=== PATIENT | female | born 1960 | race Two or more races ===

== ENCOUNTER 2016-04-03 00:21 | Emergency (ER) | payer OTHER ==
[2016-04-03 00:53] VITALS: PULSE 78; TEMP 97.5; BMI 28.3
[2016-04-03] MEDS ORDERED: MAG HYDROX/AL HYDROX/SIMETH 30 ML UNIT-DOSE CUP PO ONE (01:08)
[2016-04-03] MEDS ORDERED: PROMETHAZINE HCL 50 MG/1 ML AMP IM ONE (01:08)
[2016-04-03] MEDS ORDERED: MAG HYDROX/AL HYDROX/SIMETH 30 ML UNIT-DOSE CUP ONE ×2 (01:42→03:13)
--- NOTE | 2016-04-03 02:03 | PDOC ---
History of Present Illness - General Chief Complaint: Pain Stated Complaint: ABDOMINAL PAIN Time Seen by Provider: 04/03/16 01:01 History Source: Patient Exam Limitations: No Limitations - History of Present Illness Travel History: No Initial Comments: 04/03/16 02:03 56yo Female patient presents to ED c/o nausea after taking a Percocet for her left foot pain. Patient states she vomited x 3. She states she did not eat and drinking gingerale made it worse. Denies abd pain, back pain, fever, rectal bleeding, dysuria, hematuria, rash, CP, Diff breathing, or any other complaints at this time. Timing/Duration: denies: constant, getting worse, changing over time, intermittent, resolved prior to arrival, gone now, other Quality: denies: mild, moderate, severe, aching, burning, cramping, dullness, fullness, sharpness, stabbing, throbbing, other Abdominal Pain Onset Location: denies: RUQ, LUQ, RLQ, LLQ, epigastric, periumbilical, suprapubic, generalized abdomen, flank, unknown, other Activities at Onset: denies: none, exertion, emotional upset, rest, sleep, no specific activity, eating, working, sexual intercourse, other Treatment Prior to Arrive: worse with: analgesics, antacids, cold pack, heat, laxative, enema, other Aggravating Factors: worse with: None, Defecation, Eating, Emotional upset, Exertion, [place], Movement, Voiding, Change in position Alleviating Factors: worse with: None, Belching, Shallow Breathing, Defecation, Eating, Holding Breath, Passing Gas, Change in Position, Rest, Voiding, Vomiting Past History - Travel Traveled outside of the country in the last 30 days: No Close contact w/someone who was outside of country & ill: No - Past Medical History Allergies/Adverse Reactions: Allergies Allergy/AdvReac Type Severity Reaction Status Date / Time No Known Drug Allergies Allergy Verified 04/03/16 00:45 Home Medications: Ambulatory Orders Didanosine 250 mg PO DAILY 05/04/15 Lopinavir/Ritonavir [Kaletra 200-50 mg Tablet] 1 each PO BID 05/04/15 Losartan/Hydrochlorothiazide [Hyzaar 50-12.5 Tablet] 1 each PO DAILY 05/04/15 Multivitamin [Poly-Vitamin] 1 each PO DAILY 05/04/15 Tenofovir Disoproxil Fumarate [Viread] 300 mg PO DAILY 05/04/15 Methadone HCl 60 mg PO DAILY 02/17/16 Nabumetone [Relafen -] 750 mg PO BID 02/17/16 Oxycodone HCl/Acetaminophen [Percocet 10-325 mg Tablet] 1 each PO BID PRN #28 tablet MDD 2 03/23/16 Anemia: No Asthma: No Cancer: No Cardiac Disorders: No CVA: No COPD: No CHF: No Dementia: No Diabetes: No GI Disorders: No Disorders: No HTN: Yes Hypercholesterolemia: No HIV: Yes Kidney Stones: No Liver Disease: No Suicide Attempt (Hx): No Seizures: No Thyroid Disease: No - Surgical History Abdominal Surgery: No Appendectomy: No Cardiac Surgery: No Cholecystectomy: No Lung Surgery: Yes (LEFT LUNG BIOPSY IN 1995) Neurologic Surgery: No Orthopedic Surgery: No - Reproductive History PID: No - Immunization History Immunization Up to Date: Yes - Psycho/Social/Smoking Cessation Hx Anxiety: No Suicidal Ideation: No Smoking Status: No Smoking History: Former smoker Have you smoked in the past 12 months: No Number of Cigarettes Smoked Daily: 0 If you are a former smoker, when did you quit?: 1995 Cigars Per Day: 0 Information on smoking cessation initiated: No 'Breaking Loose' booklet given: 06/18/14 Hx Alcohol Use: No Drug/Substance Use Hx: No Substance Use Type: Alcohol, Heroin Hx Substance Use Treatment: Yes (detox, rehab, mmtp) Abd/GI Specific PMHX - Complaint Specific PMHX Colitis: No Diverticulitis: No Gall Bladder Disease: No GERD: No Hepatitis: Yes (hepatitis c) Irritable Bowel Synd (IBS): No Pancreatitis: No GI Ulcer Disease: No Review of Systems - Review of Systems Able to Perform ROS?: Yes Is the patient limited [place] proficient: No Constitutional: No: Chills, Fever Respiratory: No: Cough, Shortness of Breath, Stridor, Wheezing Cardiac (ROS): No: Chest Pain, Edema, Palpitations ABD/GI: Yes: Nausea, Vomiting. No: Constipated, Diarrhea, Difficulty Swallowing , Poor Appetite, Poor Fluid Intake, Rectal Bleeding, Tarry Stools : No: Burning, Dysuria, Discharge, Frequency, Flank Pain, Hematuria, Pain Musculoskeletal: No: Back Pain Integumentary: No: Bruising, Erythema, Rash Neurological: No: Headache, Numbness, Seizure, Tremors, Weakness, Unsteady Gait , Ataxia All Other Systems: Reviewed and Negative *Physical Exam - Vital Signs Last Vital Signs Temp Pulse Resp BP Pulse Ox 97.5 F L 78 14 153/90 95 04/03/16 00:45 04/03/16 00:45 04/03/16 00:45 04/03/16 00:45 04/03/16 00:45 - Physical Exam General Appearance: Yes: Nourished, Appropriately Dressed, Mild Distress. No: Apparent Distress, Moderate Distress, Severe Distress Respiratory/Chest: positive: Lungs Clear, Normal Breath Sounds. negative: Accessory Muscle Use, Labored Respiration, Rapid RR, Decreased Breath Sounds, Paradoxal Breathing, Rhonchi, Stridor, Wheezing Cardiovascular: positive: Regular Rhythm, Regular Rate. negative: Edema, JVD, Murmur Gastrointestinal/Abdominal: positive: Soft, Increased Bowel Sounds. negative: Tender, Distended, Guarding, Rebound, Tenderness Musculoskeletal: positive: Normal Inspection. negative: CVA Tenderness Extremity: positive: Normal Capillary Refill, Normal Inspection, Normal Range of Motion. negative: Pedal Edema, Swelling Integumentary: positive: Normal Color, Dry, Warm Neurologic: positive: physician gynecologist II-XII NML intact, Fully Oriented, Alert, Normal Mood/ Affect, Normal Response, Motor Strength 07/07 ED Treatment Course - LABORATORY CBC & Chemistry Diagram: 04/03/16 05:23 04/03/16 04:15 - Medications Given in the ED: ED Medications Discontinued Medications Generic Name Dose Route Start Last Admin Trade Name Freq PRN Reason Stop Dose Admin Al Hydroxide/Mg Hydroxide 30 ml 04/03/16 01:08 04/03/16 01:43 Mylanta Oral Suspension - PO 04/03/16 01:09 30 ml ONCE ONE Administration Progress Note - Progress Note Progress Note: PATIENT REPORTS IMPROVEMENT IN SYMPTOMS. PLAN IS TO FOLLOW UP WITH PMD. RETURN IF WORSENING OF SYMPTOMS. *DC/Admit/Observation/Transfer Diagnosis at time of Disposition: Gastroesophageal reflux disease Qualifiers: Esophagitis presence: without esophagitis Qualified Code(s): K21.9 - Gastro- esophageal reflux disease without esophagitis Nausea and vomiting Qualifiers: Vomiting type: unspecified Vomiting Intractability: non-intractable Qualified Code(s): R11.2 - Nausea with vomiting, unspecified - Discharge Dispostion Disposition: HOME Condition at time of disposition: Improved Admit: No - Patient Instructions Printed Discharge Instructions: DI for Gastroesophageal Reflux Disease (GERD) Additional Instructions: FOLLOW UP WITH YOUR DOCTOR DISCUSSED. CALL TO SCHEDULE YOUR APPOINTMENT. RETURN IF SYMPTOMS WORSEN, OR ANY CONCERNS FOR FURTHER EVALUATION. Print Language: SWAZI
[2016-04-03] MEDS ORDERED: METOCLOPRAMIDE HCL INJECTION 10 MG/2 ML VIAL IVPUSH ONE (03:27)
[2016-04-03] MEDS ORDERED: SODIUM CHLORIDE 1,000 ML IV STA (03:27)
[2016-04-03] MEDS ORDERED: METOCLOPRAMIDE HCL INJECTION 10 MG/2 ML VIAL ONE (03:46)
[2016-04-03 04:45] LABS: ALBUMIN 4.2 g/dl (3.4-5.0); ALK PHOS 148 U/L (45-117); AMYLASE 94 U/L (25-115); ANION GAP 10 (8-16); BILIRUBIN,TOTAL 0.4 mg/dL (0.2-1.0); CO2 29 mmol/L (21-32); CREATININE 0.8 mg/dL (0.55-1.02); GLUCOSE,RANDOM 114 mg/dL (74-106); SGOT/AST 72 U/L (15-37); SGPT/ALT 50 U/L (12-78); TOT PROT 8.7 g/dl (6.4-8.2)
[2016-04-03 04:48] VITALS: BP 145/73
[2016-04-03] MEDS ORDERED: POTASSIUM CHLORIDE TABS 20 MEQ TABLET.ER (FP) PO ONE (04:59)
[2016-04-03] MEDS ORDERED: FAMOTIDINE 20 MG/50 ML IVPB 50 ML IVPB ONE ×2 (05:10→05:16)
[2016-04-03] MEDS ORDERED: PANTOPRAZOLE SODIUM 40 MG in SODIUM CHLORIDE 100 ML IVPB ONE (05:10)
[2016-04-03] MEDS ORDERED: PANTOPRAZOLE SODIUM 40 MG VIAL ONE (05:18)
[2016-04-03] MEDS ORDERED: POTASSIUM CHLORIDE 40 MEQ/30 ML UNIT DOSE CUP ONE (05:26)
[2016-04-03 05:31] LABS: BASOPHIL 0.2 % (0-2.0); EOSINOPHIL 0.2 % (0-4.5); MCH 28.7 pg (25.7-33.7); MCHC 33.6 g/dl (32.0-36.0); MEAN CELL VOLUME 85.3 fl (80-96); MEAN PLT VOLUME 8.8 fl (7.5-11.1); NEUTROPHILS 87.1 % (42.8-82.8); PLATELET COUNT 177 K/MM3 (134-434); RDW 13.9 % (11.6-15.6); WHITE BLOOD COUNT 9.7 K/mm3 (4.0-10.0)
== END 2016-04-03 07:24 | disposition home or self-care (01) ==
LOC: JER 00:21
PROC: 3E023GC Introduction of Other Therapeutic Substance into Muscle, Percutaneous Approach (ICD-10-PCS; principal; 2016-04-03)
PROC: 3E033GC Introduction of Other Therapeutic Substance into Peripheral Vein, Percutaneous Approach (ICD-10-PCS; 2016-04-03)
PROC: 3E033GC Introduction of Other Therapeutic Substance into Peripheral Vein, Percutaneous Approach (ICD-10-PCS; 2016-04-03)
DX: K21.9 Gastro-esophageal reflux disease without esophagitis (principal); I10 Essential (primary) hypertension; Z21 Asymptomatic human immunodeficiency virus [HIV] infection status
CPT/HCPCS: 36415; 80053; 82150; 83690; 85025; 96365; 96372; 96375; 99281-25

== ENCOUNTER 2016-07-24 12:50 | Inpatient (IN) | payer OTHER ==
[2016-07-24 15:44] VITALS: BMI 30.4
--- NOTE | 2016-07-24 17:17 | HP ---
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 seeking help to stop using klonopin and xanax,mmtp 60 mgs/day,last medicated today, several admissions in the past last 01/18 multiple medical problems htn,mmtp,hepatitis c,s/p left lung biopsy longest period of sobriety 8 years Exam Limitations: No Limitations - Ebola screening Have you traveled outside of the country in the last 21 days: No Have you had contact with anyone from an Ebola affected area: No Have you been sick,other than usual withdrawal symptoms: No Do you have a fever: No - Review of Systems Constitutional: Loss of Appetite, Malaise, Night Sweats, Changes in sleep, Weakness, Unintentional Wgt. Loss EENT: reports: Tearing, Nose Congestion Respiratory: reports: No Symptoms reported Cardiac: reports: Palpitations GI: reports: Diarrhea, Nausea, Poor Appetite, Vomiting, Abdominal cramping : reports: No Symptoms Reported Musculoskeletal: reports: Back Pain, Muscle Pain Integumentary: reports: Dryness Neuro: reports: Headache, Tremors Endocrine: reports: No Symptoms Reported Hematology: reports: No Symptoms Reported, Other (hiv) Psychiatric: reports: No Sypmtoms Reported, Judgement Intact, Mood/Affect Appropiate, Orientated x3, Depressed (ptsd) Patient History - Patient Medical History Hx Anemia: No Hx Asthma: No Hx Chronic Obstructive Pulmonary Disease (COPD): No Hx Cancer: No Hx Cardiac Disorders: No Hx Congestive Heart Failure: No Hx Hypertension: Yes (on med) Hx Hypercholesterolemia: No Hx Pacemaker: No HX Cerebrovascular Accident: No Hx Seizures: No Hx Dementia: No Hx Diabetes: No Hx Gastrointestinal Disorders: No Hx Liver Disease: No Hx Genitourinary Disorders: No Hx Sexually Transmitted Disorders: No Hx Renal Disease (ESRD): No Hx Thyroid Disease: No Hx Human Immunodeficiency Virus (HIV): Yes (since 1995) Hx Hepatitis C: Yes Hx Depression: Yes (ptsd) Hx Suicide Attempt: No Hx Bipolar Disorder: No Hx Schizophrenia: No Other Medical History: no suicidal,no homicidal - Patient Surgical History Past Surgical History: Yes Hx Neurologic Surgery: No Hx Cataract Extraction: No Hx Cardiac Surgery: No Hx Lung Surgery: Yes (LEFT LUNG BIOPSY IN 1995) Hx Breast Surgery: No Hx Breast Biopsy: No Hx Abdominal Surgery: No Hx Appendectomy: No Hx Cholecystectomy: No Hx Genitourinary Surgery: No Hx Section: No Hx Orthopedic Surgery: No Other Surgical History: 09/15 Anesthesia Reaction: No - PPD History Previous Implant?: Yes Documented Results: Negative w/o proof Date: 09/24/13 Results: 0 mm PPD to be Administered?: Yes - Reproductive History Patient is a Female of Child Bearing Age (11 -55 yrs old): Yes Last Menstrual Period: 05/25/09 Patient : No - Smoking Cessation Smoking history: Former smoker Have you smoked in the past 12 months: No Aproximately how many cigarettes per day: 0 If you are a former smoker, when did you quit?: 1995 Cigars Per Day: 0 Hx Chewing Tobacco Use: No Initiated information on smoking cessation: Yes 'Breaking Loose' booklet given: 07/25/16 - Substance & Tx. History Hx Alcohol Use: No Hx Substance Use: Yes Substance Use Type: Tranquilizers Hx Substance Use Treatment: Yes (01/18 [facility]) - Substances Abused Alprazolam (Xanax) Route: Oral Frequency: Daily Amount used: 8MG Age of first use: 51 Date of Last Use: 07/23/16 Benzodiazepine (Klonopin) Route: Oral Frequency: Daily Amount used: 5-6MG Age of first use: 51 Date of Last Use: 07/23/16 Family Disease History - Family Disease History Family Disease History: Other: Grandparent (GM-HTN), Daughter (dsa, drug addiction) Admission Physical Exam BHS - Vital Signs Vital Signs: Vital Signs - 24 hr 07/24/16 15:42 Temperature 98.7 F Pulse Rate 91 H Respiratory 20 Rate Blood Pressure 154/100 - Physical General Appearance: Yes: Moderate Distress, Tremorous, Irritable, Sweating, Anxious HEENTM: Yes: Normal ENT Inspection, MARIANO, Pharynx Normal Respiratory: Yes: Lungs Clear, Normal Breath Sounds, No Respiratory Distress Neck: Yes: Within Normal Limits, Supple, Trachea in good position Breast: Yes: Breast Exam Deferred Cardiology: Yes: Within Normal Limits, Regular Rhythm, Regular Rate, S1, S2 Abdominal: Yes: Within Normal Limits, Normal Bowel Sounds, Non Tender, Flat, Soft Genitourinary: Yes: Within Normal Limits Back: Yes: Within Normal Limits, Normal Inspection, Muscle Spasm Musculoskeletal: Yes: Back pain, Muscle Pain Extremities: Yes: Normal Range of Motion, Non-Tender, Tremors Neurological: Yes: extracorporeal circulation specialist II-XII NML intact, Alert, Motor Strength 5/5, Normal Response Integumentary: Yes: Dry Lymphatic: Yes: Within Normal Limits - Diagnostic (1) Uncomplicated sedative, hypnotic or anxiolytic withdrawal Current Visit: Yes Status: Acute (2) HTN (hypertension) Current Visit: No Status: Chronic Comment: on meds, sees primary (3) Methadone maintenance therapy patient Current Visit: No Status: Chronic Comment: [facility], gets one day take home (4) Hepatitis C Current Visit: Yes Status: Acute (5) PTSD (post-traumatic stress disorder) Current Visit: Yes Status: Acute (6) History of lung biopsy Current Visit: Yes Status: Acute (7) Weight loss Current Visit: Yes Status: Acute Cleared for Admission [facility] - Detox or Rehab [facility] Level of Care: Medically Managed Detox Regimen/Protocol: Valium [facility] Breath Alcohol Content Breath Alcohol Content: 0 Urine Pregancy Test - Result Urine Test Results: Negative- NO Line Present Urine Drug Screen - Results Drug Screen Negative: No Urine Drug Screen Results: BZO-Benzodiazepines, MTD-Methadone, OXY-Oxycodone
[2016-07-24] MEDS ORDERED: MENTHOL/PHENOL 1 EACH UD MM PRN (17:31)
[2016-07-24] MEDS ORDERED: ACETAMINOPHEN 325 MG TABLET (FP) PO PRN (17:31)
[2016-07-24] MEDS ORDERED: guaiFENesin/D-METHORPHAN HB 10 ML UNIT-DOSE CUPS PO PRN (17:31)
[2016-07-24] MEDS ORDERED: hydrOXYzine PAMOATE 50 MG CAPSULE (FP) PO PRN (17:31)
[2016-07-24] MEDS ORDERED: MAGNESIUM HYDROX 2400MG/30ML ORAL SUSPENSION 30 ML CUP PO PRN (17:31)
[2016-07-24] MEDS ORDERED: diphenhydrAMINE HCL 50 MG CAPSULE PO PRN (17:31)
[2016-07-24] MEDS ORDERED: diazePAM 5 MG TABLET PO PRN (17:31)
[2016-07-24] MEDS ORDERED: MAGNESIUM CITRATE 300 ML BOTTLE PO PRN (17:31)
[2016-07-24] MEDS ORDERED: MAG HYDROX/AL HYDROX/SIMETH 30 ML UNIT-DOSE CUP PO PRN (17:31)
[2016-07-24] MEDS ORDERED: P-EPHED 60MG/TRIPROLIDI 2.5MG TABLET PO PRN (17:31)
[2016-07-24] MEDS ORDERED: IBUPROFEN 400 MG TABLET (FP) PO PRN (17:31)
[2016-07-24] MEDS ORDERED: LOPERAMIDE HCL 2 MG CAPSULE PO PRN (17:31)
[2016-07-24] MEDS ORDERED: diazePAM 5 MG TABLET PO ONE (19:00)
[2016-07-24 21:14] LABS: URINE APPEARANCE CLEAR; URINE BILIRUBIN NEGATIVE (NEGATIVE); URINE BLOOD NEGATIVE (NEGATIVE); URINE COLOR YELLOW; URINE GLUCOSE (UA) NEGATIVE (NEGATIVE); URINE KETONE NEGATIVE (NEGATIVE); URINE LEUK ESTERASE NEGATIVE (NEGATIVE); URINE NITRITE NEGATIVE (NEGATIVE); URINE PROTEIN NEGATIVE (NEGATIVE); URINE UROBILINOGEN 2.0 E.U/dl E.U./dl (0.2-1.0)
[2016-07-24] MEDS: diazePAM 5 MG TABLET PO SCH (22:26)
[2016-07-24] MEDS: RITONAVIR/LOPINAVIR 50MG/200MG 1 COMBO TABLET PO SCH (22:26)
[2016-07-24] MEDS: THIAMINE HCL 100 MG TABLET (FP) PO SCH (22:26)
[2016-07-25] MEDS: diazePAM 5 MG TABLET PO SCH ×3 (05:32→22:32)
[2016-07-25] MEDS ORDERED: METHADONE HCL 40 MG DISPERSABLE TABLET PO SCH (07:15)
[2016-07-25] MEDS ORDERED: METHADONE HCL 10 MG TABLET ONE (07:20)
[2016-07-25] MEDS ORDERED: METHADONE HCL 40 MG DISPERSABLE TABLET ONE (07:20)
[2016-07-25] MEDS: METHADONE 40 MG, METHADONE 20 MG PO SCH (07:32)
[2016-07-25] MEDS ORDERED: HYDROCHLOROTHIAZIDE 12.5 MG CAPSULE (FP) PO SCH (10:00)
[2016-07-25 10:13] LABS: MCH 28.5 pg (25.7-33.7); MCHC 32.8 g/dl (32.0-36.0); MEAN CELL VOLUME 87.1 fl (80-96); MEAN PLT VOLUME 10.1 fl (7.5-11.1); RDW 13.9 % (11.6-15.6); WHITE BLOOD COUNT 13.8 K/mm3 (4.0-10.0)
[2016-07-25 10:43] LABS: GLUCOSE,RANDOM 95 mg/dL (74-106); SGOT/AST 48 U/L (15-37); SGPT/ALT 31 U/L (12-78)
[2016-07-25] MEDS: LOSARTAN 50MG/HCTZ 12.5MG 1 TAB (FP) PO SCH (10:44)
[2016-07-25] MEDS: PRENATAL VITAMINS W/ FOLIC ACID TABLET (FP) PO SCH (10:44)
[2016-07-25] MEDS: TENOFOVIR DISOPROXIL FUMARATE 300 MG TABLET PO SCH (10:44)
[2016-07-25] MEDS: RITONAVIR/LOPINAVIR 50MG/200MG 1 COMBO TABLET PO SCH ×2 (10:44→22:32)
--- NOTE | 2016-07-25 10:44 | PN ---
S CIWA - CIWA Score Nausea/Vomitin Muscle Tremors: 2 Anxiety: 2 Agitation: 2 Paroxysmal Sweats: 3 Orientation: 0-Oriented Tacttile Disturbances: 1-Very Mild Itch/Numbness Auditory Disturbances: 0-None Visual Disturbances: 0-None Headache: 0-None Present CIWA-Ar Total Score: 12 S Progress Note (SOAP) Subjective: interrupted sleep,but feeling better , sweats but less shakes Objective: 07/25/16 10:40 Vital Signs Temperature 98.4 F 07/25/16 06:36 Pulse Rate 75 07/25/16 06:36 Respiratory Rate 18 07/25/16 06:36 Blood Pressure 141/82 07/25/16 06:36 O2 Sat by Pulse Oximetry (%) Laboratory Tests 07/24/16 07/25/16 20:52 06:00 WBC 13.8 H D RBC 5.10 Hgb 14.5 Hct 44.4 MCV 87.1 MCHC 32.8 RDW 13.9 MPV 10.1 D Urine Color Yellow Urine Appearance Clear Urine pH 8.0 D Ur Specific [place] 1.015 Urine Protein Negative Urine Glucose (UA) Negative Urine Ketones Negative Urine Blood Negative Urine Nitrite Negative Urine Bilirubin Negative Urine Urobilinogen 2.0 e.u/dl H Ur Leukocyte Esterase Negative pending labs pt aox3 in nad ambulating Assessment: 07/25/16 10:42 withdrawal sx's elevated wbc 07/25/16 10:43 Plan: cont. detox . increase fluids repeat cbc
[2016-07-25 10:55] LABS: ANION GAP 8 (8-16); CALCIUM 8.7 mg/dL (8.5-10.1); CO2 30 mmol/L (21-32); COCKROFT - GAULT 104.1165; CREATININE 0.8 mg/dL (0.55-1.02)
[2016-07-25 10:56] LABS: ALBUMIN 3.7 g/dl (3.4-5.0); ALK PHOS 138 U/L (45-117); BILIRUBIN,TOTAL 0.7 mg/dL (0.2-1.0); TOT PROT 7.6 g/dl (6.4-8.2)
--- NOTE | 2016-07-25 11:45 | EKG ---
Test Reason : Blood Pressure : / mmHG Vent. Rate : 081 BPM Atrial Rate : 081 BPM P-R Int : 184 ms QRS Dur : 084 ms QT Int : 386 ms P-R-T Axes : 076 059 054 degrees QTc Int : 448 ms NORMAL SINUS RHYTHM POSSIBLE LEFT ATRIAL ENLARGEMENT BORDERLINE ECG WHEN COMPARED WITH ECG OF 20-MAR-2015 23:49, NO SIGNIFICANT CHANGE WAS FOUND Confirmed by MARTHA MART MD ([id number]) on 07/25/2016 11:45:05 AM Referred By: Confirmed By:MARTHA MART MD
--- NOTE | 2016-07-25 12:55 | CONSULT ---
[facility] Psychiatric Consult - Data Date of interview: 07/25/16 Admission source: [facility] Identifying data: Readmission to [facility] for this 56 y/o AA female seeking detox treatment for benzodiazepine dependence.Patient is ,a mother of five,domiciled,unemployed and supported on [employer] benefits. Substance Abuse History: - Smoking Cessation. Smoking history: Former smoker. Have you smoked in the past 12 months: No. Aproximately how many cigarettes per day: 0. If you are a former smoker, when did you quit?: 1995. Cigars Per Day: 0. Hx Chewing Tobacco Use: No. Initiated information on smoking cessation : Yes. 'Breaking Loose' booklet given: 07/25/16. - Substance & Tx. History. Hx Alcohol Use: No. Hx Substance Use: Yes. Substance Use Type: Tranquilizers. Hx Substance Use Treatment: Yes (01/18 [facility]). - Substances Abused. Alprazolam (Xanax). Route: Oral. Frequency: Daily. Amount used: 8MG. Age of first use: 51. Date of Last Use: 07/23/16. Benzodiazepine (Klonopin). Route: Oral. Frequency: Daily. Amount used: 5-6MG. Age of first use: 51. Date of Last Use: 07/23/16. Confirmed by patient. Medical History: Hypertension,hepatitis C and HIV infection since 1995. Psychiatric History: Patient denies history of psychiatric hospitalizations.Ms Person is currently on methadone maintenance (60 mg/day) at the [facility] program in [place], [place].She denies history of suicide attempts.Records indicate past diagnosis of PTSD.Patient is not able to shed light on the circumstances which support that diagnosis. Physical/Sexual Abuse/Trauma History: Patient denies. Additional Comment: Urine Drug Screen Results: BZO-Benzodiazepines, MTD- Methadone, OXY-Oxycodone.Noted. Mental Status Exam - Mental Status Exam Alert and Oriented to: Time, Place, Person Cognitive Function: Grossly Intact Patient Appearance: Well Groomed (overweight) Mood: Nervous, Withdrawn Affect: Mood Congruent Patient Behavior: Fatigued, Cooperative Speech Pattern: Clear Voice Loudness: Normal Thought Process: Goal Oriented Thought Disorder: Not Present Hallucinations: Denies Suicidal Ideation: Denies Homicidal Ideation: Denies Insight/Judgement: Poor Sleep: Poorly, Difficulty falling asleep Appetite: Good Muscle strength/Tone: Normal Gait/Station: Normal Psychiatric Findings - Problem List ([place] 1, 2,3) (1) Uncomplicated sedative, hypnotic or anxiolytic withdrawal Current Visit: Yes Status: Acute (2) Opioid dependence on agonist therapy Current Visit: Yes Status: Acute (3) Substance induced mood disorder Current Visit: Yes Status: Acute (4) Hepatitis C Current Visit: Yes Status: Chronic (5) History of lung biopsy Current Visit: Yes Status: Chronic (6) GERD (gastroesophageal reflux disease) Current Visit: Yes Status: Chronic Qualifiers: Esophagitis presence: without esophagitis Qualified Code(s): K21.9 - Gastro-esophageal reflux disease without esophagitis (7) HTN (hypertension) Current Visit: Yes Status: Chronic Comment: on meds, sees primary (8) Hepatitis C carrier Current Visit: Yes Status: Chronic Comment: referred to [facility] Hep C program - she is interested (9) Human immunodeficiency virus (HIV) seropositivity Current Visit: Yes Status: Chronic Comment: on meds, sees primary, stable (10) Insomnia Current Visit: Yes Status: Acute - Initial Treatment Plan Initial Treatment Plan: Psychoeducation.Detoxification.Ambien 5 mg po hs.Side effects/benefits discussed with the patient.She agrees with this careplan.Observation.Recent pharmacy claims reviewed.Noted scripts for gabapentin and celexa on 03/28/16 @ [facility].Patient is presented with this information.Advised to resume these drugs.Patient declines.
[2016-07-25 13:57] LABS: PLATELET ESTIMATE ADEQUATE (NORMAL)
[2016-07-25] MEDS: THIAMINE HCL 100 MG TABLET (FP) PO SCH (22:31)
[2016-07-25] MEDS: ZOLPIDEM TARTRATE 5 MG TABLET PO PRN (22:32)
[2016-07-26] MEDS ORDERED: METHADONE HCL 10 MG TABLET ONE (04:05)
[2016-07-26] MEDS ORDERED: METHADONE HCL 40 MG DISPERSABLE TABLET ONE (04:05)
[2016-07-26] MEDS: METHADONE 40 MG, METHADONE 20 MG PO SCH (06:17)
[2016-07-26 10:04] LABS: BASOPHIL 0.4 % (0-2.0); MCH 29.1 pg (25.7-33.7); MCHC 33.5 g/dl (32.0-36.0); MEAN CELL VOLUME 86.9 fl (80-96); NEUTROPHILS 58.9 % (42.8-82.8); PLATELET COUNT 121 K/MM3 (134-434)
[2016-07-26] MEDS: diazePAM 5 MG TABLET PO SCH ×2 (10:47→22:27)
[2016-07-26] MEDS: PRENATAL VITAMINS W/ FOLIC ACID TABLET (FP) PO SCH (10:47)
[2016-07-26] MEDS: TENOFOVIR DISOPROXIL FUMARATE 300 MG TABLET PO SCH (10:47)
[2016-07-26] MEDS: LOSARTAN 50MG/HCTZ 12.5MG 1 TAB (FP) PO SCH (10:47)
[2016-07-26] MEDS: RITONAVIR/LOPINAVIR 50MG/200MG 1 COMBO TABLET PO SCH ×3 (10:47→22:26)
--- NOTE | 2016-07-26 11:49 | PN ---
S CIWA - CIWA Score Nausea/Vomitin-No Nausea/No Vomiting Muscle Tremors: 4-Moderate,w/Arms Extend Anxiety: 3 Agitation: 3 Paroxysmal Sweats: 2 Orientation: 0-Oriented Tacttile Disturbances: 0-None Auditory Disturbances: 0-None Visual Disturbances: 0-None Headache: 0-None Present CIWA-Ar Total Score: 12 S Progress Note (SOAP) Subjective: tired sweats interrupted sleep anxious Objective: 07/26/16 11:48 Vital Signs Temperature 97.7 F 07/26/16 10:55 Pulse Rate 73 07/26/16 10:55 Respiratory Rate 16 07/26/16 10:55 Blood Pressure 136/82 07/26/16 10:55 O2 Sat by Pulse Oximetry (%) Laboratory Tests 07/24/16 07/25/16 07/25/16 20:52 06:00 06:00 WBC 13.8 H D RBC 5.10 Hgb 14.5 Hct 44.4 MCV 87.1 MCHC 32.8 RDW 13.9 Plt Count No Result Required. MPV 10.1 D Neutrophils % Lymphocytes % Monocytes % Eosinophils % Basophils % Platelet Estimate Adequate Platelet Comment Mod plt clumping Sodium 139 Potassium 3.9 Chloride 101 Carbon Dioxide 30 Anion Gap 8 BUN 10 Creatinine 0.8 Creat Clearance w eGFR > 60 Random Glucose 95 Calcium 8.7 Total Bilirubin 0.7 D AST 48 H D ALT 31 D Alkaline Phosphatase 138 H Total Protein 7.6 Albumin 3.7 Urine Color Yellow Urine Appearance Clear Urine pH 8.0 D Ur Specific [place] 1.015 Urine Protein Negative Urine Glucose (UA) Negative Urine Ketones Negative Urine Blood Negative Urine Nitrite Negative Urine Bilirubin Negative Urine Urobilinogen 2.0 e.u/dl H Ur Leukocyte Esterase Negative RPR Titer 07/25/16 07/26/16 06:00 07:00 WBC 7.0 D RBC 4.69 Hgb 13.7 Hct 40.8 MCV 86.9 MCHC 33.5 RDW 14.0 Plt Count 121 L D MPV 10.0 Neutrophils % 58.9 D Lymphocytes % 28.1 D Monocytes % 8.6 D Eosinophils % 4.0 D Basophils % 0.4 Platelet Estimate Platelet Comment Sodium Potassium Chloride Carbon Dioxide Anion Gap BUN Creatinine Creat Clearance w eGFR Random Glucose Calcium Total Bilirubin AST ALT Alkaline Phosphatase Total Protein Albumin Urine Color Urine Appearance Urine pH Ur Specific [place] Urine Protein Urine Glucose (UA) Urine Ketones Urine Blood Urine Nitrite Urine Bilirubin Urine Urobilinogen Ur Leukocyte Esterase RPR Titer Nonreactive wbc improved awake/alert ambulating no acute distress Assessment: 07/26/16 11:50 withdrawal sx Plan: continue detox increase fluids
[2016-07-26] MEDS: ZOLPIDEM TARTRATE 5 MG TABLET PO PRN (22:25)
[2016-07-26] MEDS: THIAMINE HCL 100 MG TABLET (FP) PO SCH (22:27)
[2016-07-27] MEDS ORDERED: METHADONE HCL 40 MG DISPERSABLE TABLET ONE (04:38)
[2016-07-27] MEDS ORDERED: METHADONE HCL 10 MG TABLET ONE (04:39)
[2016-07-27] MEDS: METHADONE 40 MG, METHADONE 20 MG PO SCH (05:49)
[2016-07-27] MEDS: TENOFOVIR DISOPROXIL FUMARATE 300 MG TABLET PO SCH (10:46)
[2016-07-27] MEDS: PRENATAL VITAMINS W/ FOLIC ACID TABLET (FP) PO SCH (10:46)
[2016-07-27] MEDS: RITONAVIR/LOPINAVIR 50MG/200MG 1 COMBO TABLET PO SCH ×2 (10:46→22:43)
[2016-07-27] MEDS: LOSARTAN 50MG/HCTZ 12.5MG 1 TAB (FP) PO SCH (10:46)
[2016-07-27] MEDS: diazePAM 5 MG TABLET PO SCH ×2 (10:46→22:43)
--- NOTE | 2016-07-27 11:43 | PN ---
BHS Progress Note (SOAP) Subjective: interrrupted sleep but better Objective: 07/27/16 11:41 Vital Signs Temperature 97.7 F 07/27/16 09:55 Pulse Rate 69 07/27/16 09:55 Respiratory Rate 18 07/27/16 09:55 Blood Pressure 135/91 07/27/16 09:55 O2 Sat by Pulse Oximetry (%) Laboratory Tests 07/24/16 07/25/16 07/25/16 20:52 06:00 06:00 WBC 13.8 H D RBC 5.10 Hgb 14.5 Hct 44.4 MCV 87.1 MCHC 32.8 RDW 13.9 Plt Count No Result Required. MPV 10.1 D Neutrophils % Lymphocytes % Monocytes % Eosinophils % Basophils % Platelet Estimate Adequate Platelet Comment Mod plt clumping Sodium 139 Potassium 3.9 Chloride 101 Carbon Dioxide 30 Anion Gap 8 BUN 10 Creatinine 0.8 Creat Clearance w eGFR > 60 Random Glucose 95 Calcium 8.7 Total Bilirubin 0.7 D AST 48 H D ALT 31 D Alkaline Phosphatase 138 H Total Protein 7.6 Albumin 3.7 Urine Color Yellow Urine Appearance Clear Urine pH 8.0 D Ur Specific [place] 1.015 Urine Protein Negative Urine Glucose (UA) Negative Urine Ketones Negative Urine Blood Negative Urine Nitrite Negative Urine Bilirubin Negative Urine Urobilinogen 2.0 e.u/dl H Ur Leukocyte Esterase Negative RPR Titer 07/25/16 07/26/16 06:00 07:00 WBC 7.0 D RBC 4.69 Hgb 13.7 Hct 40.8 MCV 86.9 MCHC 33.5 RDW 14.0 Plt Count 121 L D MPV 10.0 Neutrophils % 58.9 D Lymphocytes % 28.1 D Monocytes % 8.6 D Eosinophils % 4.0 D Basophils % 0.4 Platelet Estimate Platelet Comment Sodium Potassium Chloride Carbon Dioxide Anion Gap BUN Creatinine Creat Clearance w eGFR Random Glucose Calcium Total Bilirubin AST ALT Alkaline Phosphatase Total Protein Albumin Urine Color Urine Appearance Urine pH Ur Specific [place] Urine Protein Urine Glucose (UA) Urine Ketones Urine Blood Urine Nitrite Urine Bilirubin Urine Urobilinogen Ur Leukocyte Esterase RPR Titer Nonreactive pt aox3 in nad ambulating Assessment: 07/27/16 11:41 withdrawal sx's Plan: cont. detox increase fluids d/c in am
[2016-07-27] MEDS: ZOLPIDEM TARTRATE 5 MG TABLET PO PRN (22:42)
[2016-07-27] MEDS: THIAMINE HCL 100 MG TABLET (FP) PO SCH (22:43)
[2016-07-28] MEDS ORDERED: METHADONE HCL 40 MG DISPERSABLE TABLET ONE (04:56)
[2016-07-28] MEDS ORDERED: METHADONE HCL 10 MG TABLET ONE (04:57)
[2016-07-28] MEDS: METHADONE 40 MG, METHADONE 20 MG PO SCH (05:57)
--- NOTE | 2016-07-28 08:34 | DS ---
[facility] Detox Discharge Summary Admission Date: 07/24/16 Discharge Date: 07/28/16 - History Present History: Opioid Dependence, Sedative Dependence, MMTP - Physical Exam Results Vital Signs: Vital Signs Temperature 97.7 F 07/28/16 06:00 Pulse Rate 63 07/28/16 06:00 Respiratory Rate 18 07/28/16 06:00 Blood Pressure 119/63 07/28/16 06:00 O2 Sat by Pulse Oximetry (%) - Treatment Hospital Course: Detox Protocol Followed, Detoxed Safely, Responded well, Discharged Condition Good, Rehab Referral Accepted - Medication Discharge Medications: Ambulatory Orders Lopinavir/Ritonavir [Kaletra 200-50 mg Tablet] 1 each PO BID 05/04/15 Losartan/Hydrochlorothiazide [Hyzaar 50-12.5 Tablet] 1 each PO DAILY 05/04/15 Tenofovir Disoproxil Fumarate [Viread] 300 mg PO DAILY 05/04/15 - Diagnosis (1) Insomnia Current Visit: Yes Status: Acute (2) Opioid dependence on agonist therapy Current Visit: Yes Status: Acute (3) PTSD (post-traumatic stress disorder) Current Visit: Yes Status: Acute (4) Substance induced mood disorder Current Visit: Yes Status: Acute (5) Uncomplicated sedative, hypnotic or anxiolytic withdrawal Current Visit: Yes Status: Chronic (6) Weight loss Current Visit: Yes Status: Suspected (7) GERD (gastroesophageal reflux disease) Current Visit: Yes Status: Chronic Qualifiers: Esophagitis presence: without esophagitis Qualified Code(s): K21.9 - Gastro-esophageal reflux disease without esophagitis (8) HTN (hypertension) Current Visit: Yes Status: Chronic Qualifiers: Hypertension type: essential hypertension Qualified Code(s): I10 - Essential (primary) hypertension (9) Hepatitis C Current Visit: Yes Status: Chronic Qualifiers: Viral hepatitis chronicity: chronic Hepatic coma status: without hepatic coma Qualified Code(s): B18.2 - Chronic viral hepatitis C (10) History of lung biopsy Current Visit: Yes Status: Chronic (11) Human immunodeficiency virus (HIV) seropositivity Current Visit: Yes Status: Chronic (12) Chronic pain Current Visit: No Status: Chronic (13) Depression with anxiety Current Visit: No Status: Chronic (14) Methadone maintenance therapy patient Current Visit: Yes Status: Chronic (15) Tendonitis, Achilles, left Current Visit: No Status: Chronic - AMA Did Patient Leave Against Medical Advice: No
[2016-07-28] MEDS: PRENATAL VITAMINS W/ FOLIC ACID TABLET (FP) PO SCH (09:23)
[2016-07-28] MEDS: TENOFOVIR DISOPROXIL FUMARATE 300 MG TABLET PO SCH (09:23)
[2016-07-28] MEDS: LOSARTAN 50MG/HCTZ 12.5MG 1 TAB (FP) PO SCH (09:24)
[2016-07-28] MEDS: RITONAVIR/LOPINAVIR 50MG/200MG 1 COMBO TABLET PO SCH (09:25)
[2016-07-28] MEDS ORDERED: diazePAM 5 MG TABLET PO SCH (10:00)
[2016-07-28 10:51] VITALS: BP 123/73; PULSE 76; TEMP 98.4
== END 2016-07-28 09:48 | disposition home or self-care (01) | DRG 773 ==
LOC: YASAS 12:50 → Y6N 18:34
PROVIDERS: ADMIT Internal Medicine; ATTEND Internal Medicine
PROC: HZ2ZZZZ Detoxification Services for Substance Abuse Treatment (ICD-10-PCS; principal; 2016-07-24)
DX: F13.230 Sedative, hypnotic or anxiolytic dependence with withdrawal, uncomplicated (principal); F11.20 Opioid dependence, uncomplicated; F43.10 Post-traumatic stress disorder, unspecified; F19.24 Other psychoactive substance dependence with psychoactive substance-induced mood disorder; F41.8 Other specified anxiety disorders; G47.00 Insomnia, unspecified; K21.9 Gastro-esophageal reflux disease without esophagitis; I10 Essential (primary) hypertension; B18.2 Chronic viral hepatitis C; Z21 Asymptomatic human immunodeficiency virus [HIV] infection status; G89.29 Other chronic pain; M76.62 Achilles tendinitis, left leg; D72.829 Elevated white blood cell count, unspecified; Z87.891 Personal history of nicotine dependence; Z87.898 Personal history of other specified conditions
CPT/HCPCS: 36415; 80053; 81003; 85025; 85027; 86593; 93005; 93010